=== PATIENT | female | born 1975 | race Caucasian/White ===

== ENCOUNTER 2017-07-06 14:45 | Emergency (ER) | payer OTHER ==
[2017-07-06 14:56] VITALS: BMI 25.9
--- NOTE | 2017-07-06 14:56 | PDOC ---
Rapid Medical Evaluation Chief Complaint: Nausea/Vomiting Time Seen by Provider: 07/06/17 14:52 Medical Evaluation: Allergies Allergy/AdvReac Type Severity Reaction Status Date / Time No Known Allergies Allergy Verified 07/06/17 14:52 07/06/17 14:53 The patient presents with a chief complaint of: nausea and vomiting, palpitations and sore throat since yesterday I have performed a brief in-person evaluation of this patient. Pertinent physical exam findings: no erythema to soft palate, VSS I have ordered the following:ua, upreg, cbc, comp, and lipase The patient will proceed to the ED for further evaluation. Discharge Disposition - Diagnosis Nausea & vomiting - Referrals - Patient Instructions - Post Discharge Activity
[2017-07-06 15:25] LABS: BASOPHIL 0.5 % (0-2.0); EOSINOPHIL 0.6 % (0-4.5); MCH 29.7 pg (25.7-33.7); MCHC 34.8 g/dl (32.0-36.0); MEAN CELL VOLUME 85.2 fl (80-96); MEAN PLT VOLUME 7.4 fl (7.5-11.1); NEUTROPHILS 70.5 % (42.8-82.8); PLATELET COUNT 285 K/MM3 (134-434); WHITE BLOOD COUNT 9.5 K/mm3 (4.0-10.0)
[2017-07-06 15:41] LABS: URINE APPEARANCE CLOUDY; URINE BILIRUBIN NEGATIVE (NEGATIVE); URINE BLOOD NEGATIVE (NEGATIVE); URINE COLOR YELLOW; URINE GLUCOSE (UA) NEGATIVE (NEGATIVE); URINE KETONE NEGATIVE (NEGATIVE); URINE LEUK ESTERASE TRACE (NEGATIVE); URINE NITRITE NEGATIVE (NEGATIVE); URINE PROTEIN NEGATIVE (NEGATIVE)
--- NOTE | 2017-07-06 15:51 | PDOC ---
History of Present Illness - General Chief Complaint: Nausea/Vomiting Stated Complaint: Nausea/Vomiting Time Seen by Provider: 07/06/17 14:52 - History of Present Illness Initial Comments: 42 year old female with PMH of migraines presenting with 2 days of band like squeezing headache with one day of nausea and NBNB vomiting. Describes her headache as squeezing from all directions and tight with photophobia and sonophobia but without visual field deficits or floaters. She typically used a triptan for her migraines but it has not helped in this instance. Of note, she has not had any GI symptoms with her migraines in the past. She also admits to some recent URI like symptoms. States that the vomiting definitely started after the headache. Denies any diarrhea, chest pain, palpitations, or other sick symptoms. 07/06/17 16:47 Past History - Past Medical History Allergies/Adverse Reactions: Allergies Allergy/AdvReac Type Severity Reaction Status Date / Time No Known Allergies Allergy Verified 07/06/17 14:52 Home Medications: Ambulatory Orders Ondansetron [Zofran *Odt*] 8 mg SL BID PRN #14 od.tablet 07/06/17 COPD: No DVT: No Dementia: No - Surgical History Cholecystectomy: No - Immunization History Immunization Up to Date: Yes - Suicide/Smoking/Psychosocial Hx Smoking History: Former smoker Have you smoked in the past 12 months: No If you are a former smoker, when did you quit?: 15yrs Information on smoking cessation initiated: No Hx Alcohol Use: No Drug/Substance Use Hx: No Substance Use Type: None Review of Systems - Review of Systems Constitutional: No: Chills, Diaphoresis, Fever, Loss of Appetite HEENTM: No: Recent change in vision Respiratory: No: Cough, Shortness of Breath Cardiac (ROS): No: Chest Pain, Palpitations, Syncope ABD/GI: Yes: Nausea, Poor Appetite, Vomiting. No: Diarrhea : No: Hematuria, Incontinence, Pain Musculoskeletal: No: Back Pain Integumentary: No: Bruising Neurological: Yes: Headache. No: Numbness, Paresthesia, Unsteady Gait Psychiatric: No: Anxiety, Depression *Physical Exam - Vital Signs Last Vital Signs Temp Pulse Resp BP Pulse Ox 97.7 F 83 16 118/74 100 07/06/17 14:52 07/06/17 14:52 07/06/17 14:52 07/06/17 14:52 07/06/17 14:52 - Physical Exam General Appearance: Yes: Nourished, Appropriately Dressed, Apparent Distress, Mild Distress HEENT: positive: EOMI, KAREEM, Normal ENT Inspection, Normal Voice Neck: positive: Trachea midline, Normal Thyroid, Supple. negative: Tender, Rigid Respiratory/Chest: positive: Lungs Clear, Normal Breath Sounds. negative: Chest Tender, Respiratory Distress, Accessory Muscle Use Cardiovascular: positive: Regular Rhythm, Regular Rate, S1, S2. negative: Murmur Gastrointestinal/Abdominal: positive: Normal Bowel Sounds, Flat, Soft. negative : Tender Musculoskeletal: positive: Normal Inspection Extremity: positive: Normal Capillary Refill, Normal Inspection, Normal Range of Motion Integumentary: positive: Normal Color, Dry, Warm Neurologic: positive: market research coordinator II-XII NML intact, Fully Oriented, Alert, Normal Mood/ Affect, Normal Response, Motor Strength /5 ED Treatment Course - LABORATORY CBC & Chemistry Diagram: 07/06/17 15:00 07/06/17 15:00 - ADDITIONAL ORDERS Additional order review: Laboratory Results 07/06/17 14:50 Urine HCG, Qual Negative 07/06/17 15:00 RBC 4.71 MCV 85.2 MCHC 34.8 RDW 13.0 MPV 7.4 L Neutrophils % 70.5 Lymphocytes % 22.7 Monocytes % 5.7 Eosinophils % 0.6 Basophils % 0.5 Medical Decision Making - Medical Decision Making 42 year old female with history of migraines presenting with gastritis and headache. No meningeal signs or visual symptoms with the exception of mild photophobia and patient does not appear toxic. No risk factors for aneurism or spontaneous hemorrhage. Unclear if this is status migrainosus vs. a migraine with a viral gastritis superimposed. Labs WNL, Upreg negative and patient's symptoms improved with Benadryl, Reglan, 1 L IV NS, Pepcid, and [address] scan of head withheld because of resolved symptoms with symptomatic treatment. Will DC home with neuro follow up. *DC/Admit/Observation/Transfer Diagnosis at time of Disposition: Migraine Qualifiers: Migraine type: without aura Status migrainosus presence: without status migrainosus Intractability: not intractable Qualified Code(s): G43.009 - Migraine without aura, not intractable, without status migrainosus Nausea & vomiting Qualifiers: Vomiting type: unspecified Vomiting Intractability: non-intractable Qualified Code(s): R11.2 - Nausea with vomiting, unspecified - Discharge Dispostion Disposition: HOME Condition at time of disposition: Improved Admit: No - Prescriptions Prescriptions: Ondansetron [Zofran *Odt*] 8 mg SL BID PRN #14 od.tablet PRN Reason: Nausea - Referrals - Patient Instructions Printed Discharge Instructions: DI for Migraine Additional Instructions: We believe that your nausea, vomiting, and headache were probably all related to your headache. It is possible that you have some stomach viral infection that will also get better within the next few days. Please take the medication as prescribed. Please follow up with Dr. Alvarez, your neurologist for further management of your migraines. Please return to the ED if you have any more headaches that don't get better with your medication. - Post Discharge Activity
[2017-07-06 15:52] LABS: ALBUMIN 3.9 g/dl (3.4-5.0); ANION GAP 10 (8-16); CO2 26 mmol/L (21-32); CREATININE 0.5 mg/dL (0.55-1.02); GLUCOSE,RANDOM 88 mg/dL (74-106); SGOT/AST 20 U/L (15-37); SGPT/ALT 33 U/L (12-78)
[2017-07-06 15:54] LABS: ALK PHOS 126 U/L (45-117); BILIRUBIN,TOTAL 0.6 mg/dL (0.2-1.0)
--- NOTE | 2017-07-06 16:06 | PDOC ---
Attending Attestation - [facility] HPI: 07/06/17 16:25 The patient is a 42 year old female with history of migraines who presents to the ED complaining of 2 days of progressively worsening headache with 1 day of nausea and multiple episodes of nonbloody vomiting. No fever or chills. No abdominal pain, constipation, or diarrhea. No chest pain, SOB, or diaphoresis. - Physicial Exam PE: 07/06/17 16:51 Constitutional: Awake, alert, oriented. No acute distress. Head: Normocephalic. Atraumatic Eyes: PERRL. EOMI. Conjunctivae are not pale. ENT: Mucous membranes are moist and intact. Posterior pharynx without exudates or erythema. Uvula midline. Neck: Supple. Full ROM. No lymphadenopathy. Cardiovascular: Regular rate. Regular rhythm. S1, S2 regular. Distal pulses are 2+ and symmetric. Pulmonary/Chest: No evidence of respiratory distress. Clear to auscultation bilaterally No wheezing, rales or rhonchi. Abdominal: Soft and non-distended. There is no tenderness. No rebound, guarding or rigidity. No organomegaly. No palpable masses. Good bowel sounds. Back: No CVA tenderness. Musculoskeletal: No edema. No cyanosis. No clubbing. Full range of motion in all extremities. Nocalf tenderness. Radial/pedal pulses are intact and 2+ bilaterally Skin: Skin is warm and dry. No petechiae. No purpura. Neurological: Alert and oriented to person, place, and time. Cranial nerves II -XII are grossly intact. Normal speech. Strength is grossly symmetric. No sensory deficits. Psychiatric: Good eye contact. Normal interaction, affect and behavior. - Medical Decision Making 07/06/17 16:54 Documentation prepared by Isabel Lopez, acting as biomedical instrument technician for Lupe Gonzales DO. <Isabel Lopez - Last Filed: 07/06/17 16:25> - Resident Resident Name: Isabelle Tillman - ED Attending Attestation I have performed the following: I have examined & evaluated the patient, The case was reviewed & discussed with the resident, I agree w/resident's findings & plan, Exceptions are as noted - Medical Decision Making 07/06/17 16:06 I, Dr. Lupe Gonzales DO, attest that this document has been prepared under my direction and personally reviewed by me in its entirety. I further attest, that it accurately reflects all work, treatment, procedures and medical decision -making performed by me. 07/06/17 16:21 a/p: 42yo female with bishop, n/v -gradual onset -getting worse over 3 days, no acute onset -no thunderclap -neuro nonfocal -sounds more like a tension bishop -had sore throat, rhinorrhea 2 days ago, now with n/v -will check labs, medicate, reglan, ivf hydration -will monitor and reassess 07/06/17 18:28 re-eval: pt resting comfortably. pt stable at this time. bishop resolved. n/v resolved. sleepy from benadryl. will monitor and reassess 07/06/17 18:53 pt tolerated po intake in the ED stable for d/c to home. 07/06/17 18:59 discussed all reasons to return to the ed and need for follow up with her headache specialist. <Lupe Gonzales - Last Filed: 07/06/17 18:59>
[2017-07-06] MEDS ORDERED: SODIUM CHLORIDE 0.9% 1000 ML INFUS.BAG IV ONE (16:09)
[2017-07-06] MEDS ORDERED: METOCLOPRAMIDE HCL INJECTION 10 MG/2 ML VIAL IVPUSH ONE (16:09)
[2017-07-06] MEDS ORDERED: FAMOTIDINE 20 MG/50 ML IVPB 20 MG/50 ML MG IVPB ONE ×2 (16:10→17:06)
[2017-07-06] MEDS ORDERED: DEXAMETHASONE SOD PHOSPHATE 10 MG/1 ML VIAL IVPUSH ONE (16:10)
[2017-07-06 16:31] LABS: URINE BACTERIA RARE /hpf (NONE SEEN); URINE MUCUS RARE; URINE RBC 5 /hpf (0-3); URINE WBC <1 /hpf (3-5)
[2017-07-06] MEDS ORDERED: METOCLOPRAMIDE HCL INJECTION 10 MG/2 ML VIAL ONE (17:05)
[2017-07-06] MEDS ORDERED: DEXAMETHASONE SOD PHOSPHATE 10 MG/1 ML VIAL ONE (17:05)
[2017-07-06 19:09] VITALS: BP 92/62; PULSE 69; TEMP 98.2
[2017-07-06 20:10] LABS: URINE LEUK ESTERASE Negative (NEGATIVE)
== END 2017-07-06 19:16 | disposition home or self-care (01) ==
LOC: JER 14:45
PROC: 3E033GC Introduction of Other Therapeutic Substance into Peripheral Vein, Percutaneous Approach (ICD-10-PCS; principal; 2017-07-06)
PROC: 3E033GC Introduction of Other Therapeutic Substance into Peripheral Vein, Percutaneous Approach (ICD-10-PCS; 2017-07-06)
PROC: 3E0333Z Introduction of Anti-inflammatory into Peripheral Vein, Percutaneous Approach (ICD-10-PCS; 2017-07-06)
DX: G43.009 Migraine without aura, not intractable, without status migrainosus (principal)
CPT/HCPCS: 36415; 80053; 81003; 81015; 83690; 84703; 85025; 99282-25